=== PATIENT | female | born 1930 | race Caucasian/White ===

== ENCOUNTER 2016-05-07 16:58 | Inpatient (IN) | payer OTHER ==
[~2016-05-07] VITALS: Ht 152.4 cm; Wt 75.5 kg
[~2016-05-07 16:58] MED LIST: ASPIR 8181 MG PO; ATENOLOL50 MG PO; BG MC; DEXILANT60 M1 PO; DICYCLOMINE HCL10 MG PO; GLU500 PO; NORCO1 TA2 PO; ROBDML PO; VALSARTAN160 MG PO; XANAX0.5 MG PO; ZOCOR20 MG PO
[2016-05-07] MEDS ORDERED: NOR10T PO (20:15)
[2016-05-07] MEDS ORDERED: DEXILANT60 M1 PO (20:15)
[2016-05-07] MEDS ORDERED: DIOVAN160 MG PO (20:15)
[2016-05-07] MEDS ORDERED: CETIRIZINE HYDR10 MG PO (20:16)
[2016-05-07 20:26] LABS: BASOPHIL % 0.3 % (0-2); PLATELET COUNT 396 x10^3mcL (130-400)
[2016-05-07 20:37] LABS: CARBON DIOXIDE 27.4 mmol/L (21-32); CHLORIDE SERUM 102 mmol/L (98-107); CREATININE SERUM 1.1 mg/dL (0.6-1.0); GLUCOSE SERUM 104 mg/dL (74-106); POTASSIUM SERUM 3.9 mmol/L (3.5-5.1); SODIUM SERUM 138 mmol/L (136-145)
[2016-05-07 20:43] LABS: ALBUMIN 3.4 g/dL (3.4-5.0); ALKALINE PHOSPHATASE 77 U/L (46-116); ALT/SGPT 19 U/L (14-59); AST/SGOT 16 U/L (15-37); BILIRUBIN TOTAL 0.3 mg/dL (0.20-1.00); CHOLESTEROL 168 mg/dL (<200); HDL CHOLESTEROL 72 mg/dL (40-60); TOTAL PROTEIN, SERUM 7.7 g/dL (6.4-8.2)
[2016-05-07 23:25] VITALS: BP 127/45
[2016-05-07 23:34] LABS: CHOLESTEROL/HDL RATIO 2.4; MAGNESIUM 1.8 mg/dL (1.8-2.4); PHOSPHOROUS 3.6 mg/dL (2.5-4.9)
[2016-05-07 23:37] VITALS: BP 127/45
[2016-05-07 23:57] LABS: FREE THYROXINE INDEX 2.2 ug/dL (1.4-4.5)
[2016-05-08 00:43] LABS: T3 TOTAL 0.93 ng/mL
[2016-05-08 02:28] VITALS: BP 126/46
[2016-05-08 02:40] LABS: microscopic required? YES; urine erythrocyte TRACE (NEGATIVE)
[2016-05-08] MEDS ORDERED: BACLOFEN10 MG PO (04:21)
[2016-05-08] MEDS ORDERED: CLOPIDOGREL75 M1 PO (04:21)
[2016-05-08] MEDS ORDERED: FERROUS SULFAT325 M2 PO (04:22)
[2016-05-08] MEDS ORDERED: DIOVAN160 MG PO (04:22)
[2016-05-08 05:45] VITALS: BP 114/54
[2016-05-08 06:36] LABS: BASOPHIL % 0.2 % (0-2); PLATELET COUNT 384 x10^3mcL (130-400)
[2016-05-08 06:41] LABS: RED CELL DISTRIBUTION WIDTH 15.8 % (11.5-14.5)
[2016-05-08 06:52] LABS: CALCIUM 8.4 mg/dL (8.5-10.1); CARBON DIOXIDE 23.6 mmol/L (21-32); CHLORIDE SERUM 107 mmol/L (98-107); GLUCOSE SERUM 192 mg/dL (74-106); POTASSIUM SERUM 3.7 mmol/L (3.5-5.1); SODIUM SERUM 143 mmol/L (136-145)
[2016-05-08 09:25] VITALS: BP 136/77
[2016-05-08 12:45] VITALS: BP 105/46
[2016-05-08 17:30] VITALS: BP 107/62
[2016-05-08 21:09] VITALS: Ht 152.4 cm; Wt 75.5 kg
[2016-05-08 22:12] VITALS: BP 118/59
[2016-05-09 06:02] LABS: BASOPHIL % 0.3 % (0-2); PLATELET COUNT 355 x10^3mcL (130-400)
[2016-05-09 06:25] LABS: CARBON DIOXIDE 26.2 mmol/L (21-32); CHLORIDE SERUM 110 mmol/L (98-107); GLUCOSE SERUM 108 mg/dL (74-106); MAGNESIUM 1.7 mg/dL (1.8-2.4); PHOSPHOROUS 3.5 mg/dL (2.5-4.9); POTASSIUM SERUM 4.2 mmol/L (3.5-5.1); SODIUM SERUM 145 mmol/L (136-145)
[2016-05-09 06:27] VITALS: BP 121/55
[2016-05-09 06:45] LABS: RED CELL DISTRIBUTION WIDTH 15.5 % (11.5-14.5)
[2016-05-09] MEDS ORDERED: CLEOCIN HCL300 MG PO (09:46)
[2016-05-09] MEDS ORDERED: LEVAQUIN750 MG PO (09:46)
[2016-05-09] MEDS ORDERED: LAC PO (09:46)
[2016-05-09 10:02] VITALS: BP 119/53
[2016-05-09 11:45] VITALS: BP 119/53
[2016-05-09 14:13] VITALS: BP 119/60
== END 2016-05-09 14:50 | disposition home or self-care (01) | DRG 177 ==
LOC: ED 16:58 → DU 22:00
PROVIDERS: Emergency Medicine; Family Medicine; ADMIT Family Medicine
DX: J69.0 Pneumonitis due to inhalation of food and vomit (principal); J96.00 Acute respiratory failure, unspecified whether with hypoxia or hypercapnia; I50.41 Acute combined systolic (congestive) and diastolic (congestive) heart failure; N39.0 Urinary tract infection, site not specified; I11.0 Hypertensive heart disease with heart failure; R73.03 Prediabetes; D64.9 Anemia, unspecified; K76.0 Fatty (change of) liver, not elsewhere classified; M19.90 Unspecified osteoarthritis, unspecified site; I36.1 Nonrheumatic tricuspid (valve) insufficiency; M81.8 Other osteoporosis without current pathological fracture; E66.9 Obesity, unspecified; Z68.32 Body mass index [BMI] 32.0-32.9, adult
CPT/HCPCS: 83880; 84439; J0456; J0696; J1644; J1956; J2930; J3490; J7030; J7050; J7613; J7620; J7626; J7644

== ENCOUNTER 2016-09-26 11:44 | Emergency (ER) | payer OTHER ==
[~2016-09-26 11:44] MED LIST changes: +BACLOFEN10 MG PO; +CETIRIZINE HYDR10 MG PO; +CLEOCIN HCL300 MG PO; +CLOPIDOGREL75 M1 PO; +DIOVAN160 MG PO; +FERROUS SULFAT325 M2 PO; +LAC PO; +LEVAQUIN750 MG PO; +NOR10T PO
[2016-09-26 11:54] VITALS: BP 147/69
== END 2016-09-26 12:42 | disposition home or self-care (01) ==
LOC: ED 11:44
DX: B02.9 Zoster without complications (principal); I10 Essential (primary) hypertension

== ENCOUNTER 2016-11-25 07:26 | Emergency (ER) | payer OTHER ==
[2016-11-25 09:26] VITALS: BP 122/54
== END 2016-11-25 11:20 | disposition home or self-care (01) ==
LOC: ED 07:26
DX: M75.101 Unspecified rotator cuff tear or rupture of right shoulder, not specified as traumatic (principal); M81.0 Age-related osteoporosis without current pathological fracture; M19.90 Unspecified osteoarthritis, unspecified site
CPT/HCPCS: J1885; J2270

== ENCOUNTER 2017-02-27 09:46 | Inpatient (IN) | payer OTHER ==
[~2017-02-27] VITALS: Ht 157.5 cm; Wt 69.0 kg
[2017-02-27 12:19] LABS: BASOPHIL % 0.2 % (0-2); PLATELET COUNT 372 x10^3mcL (130-400); RED CELL DISTRIBUTION WIDTH 14.6 % (11.5-14.5)
[2017-02-27 12:24] LABS: CALCIUM 9.1 mg/dL (8.5-10.1); CARBON DIOXIDE 25.3 mmol/L (21-32); CHLORIDE SERUM 103 mmol/L (98-107); GLUCOSE SERUM 97 mg/dL (74-106); SODIUM SERUM 141 mmol/L (136-145)
[2017-02-27 12:28] LABS: ALBUMIN 3.8 g/dL (3.4-5.0); ALKALINE PHOSPHATASE 65 U/L (46-116); ALT/SGPT 25 U/L (14-59); AST/SGOT 22 U/L (15-37); BILIRUBIN TOTAL 0.4 mg/dL (0.20-1.00); TOTAL PROTEIN, SERUM 7.7 g/dL (6.4-8.2)
[2017-02-27 15:24] VITALS: BP 122/50
[2017-02-27 15:26] VITALS: Ht 157.5 cm; Wt 69.0 kg
[2017-02-27 15:49] VITALS: BP 122/50
[2017-02-27 16:12] LABS: FREE T4 0.91 ng/dL (0.76-1.46); FREE THYROXINE INDEX 2.6 ug/dL (1.4-4.5); T4(THYROXINE) 7.5 ug/dL (4.7-13.3)
[2017-02-27 16:23] LABS: MAGNESIUM 1.6 mg/dL (1.8-2.4); PHOSPHOROUS 3.6 mg/dL (2.5-4.9)
[2017-02-27 17:19] VITALS: BP 119/50
[2017-02-28 06:22] VITALS: BP 117/53
[2017-02-28 07:34] LABS: CALCIUM 8.2 mg/dL (8.5-10.1); CARBON DIOXIDE 26.6 mmol/L (21-32); CHLORIDE SERUM 105 mmol/L (98-107); CREATININE SERUM 1.1 mg/dL (0.6-1.0); GLUCOSE SERUM 97 mg/dL (74-106); POTASSIUM SERUM 4.2 mmol/L (3.5-5.1); SODIUM SERUM 139 mmol/L (136-145); TRIGLYCERIDES 40 mg/dL (<150)
[2017-02-28 07:39] LABS: CHOLESTEROL 130 mg/dL (<200); CHOLESTEROL/HDL RATIO 2.1; HDL CHOLESTEROL 62 mg/dL (40-60)
[2017-02-28 07:40] LABS: PLATELET COUNT 320 x10^3mcL (130-400); RED CELL DISTRIBUTION WIDTH 14.1 % (11.5-14.5)
[2017-02-28 10:14] VITALS: BP 100/38
[2017-02-28 13:33] LABS: T3 TOTAL 1.1 ng/mL
[2017-02-28 14:40] VITALS: BP 118/45
[2017-02-28 17:37] VITALS: BP 110/62
[2017-02-28 20:40] VITALS: BP 129/48
[2017-03-01 05:00] VITALS: BP 146/64
[2017-03-01 07:45] LABS: BASOPHIL % 0.6 % (0-2); PLATELET COUNT 280 x10^3mcL (130-400)
[2017-03-01 07:52] LABS: RED CELL DISTRIBUTION WIDTH 15.1 % (11.5-14.5)
[2017-03-01 07:57] LABS: CALCIUM 7.8 mg/dL (8.5-10.1); CARBON DIOXIDE 24.9 mmol/L (21-32); CHLORIDE SERUM 104 mmol/L (98-107); CREATININE SERUM 0.9 mg/dL (0.6-1.0); GLUCOSE SERUM 96 mg/dL (74-106); POTASSIUM SERUM 3.8 mmol/L (3.5-5.1); SODIUM SERUM 139 mmol/L (136-145)
[2017-03-01 08:26] LABS: UA SPECIFIC GRAVITY >=1.030 (1.005-1.035); microscopic required? YES; urine erythrocyte NEGATIVE (NEGATIVE)
[2017-03-01 08:39] LABS: AMPHETAMINE QUAL UR NONE DETECTED (NEG <=1000)
[2017-03-01 10:03] VITALS: BP 125/47
[2017-03-01 17:47] VITALS: BP 106/46
[2017-03-01 20:55] VITALS: BP 122/57
[2017-03-02 05:41] VITALS: BP 145/64
[2017-03-02 06:56] LABS: BASOPHIL % 0.4 % (0-2); PLATELET COUNT 313 x10^3mcL (130-400); RED CELL DISTRIBUTION WIDTH 15.1 % (11.5-14.5)
[2017-03-02 09:34] VITALS: BP 112/59
[2017-03-02 09:57] LABS: ALBUMIN 3.4 g/dL (3.4-5.0); CALCIUM 8.2 mg/dL (8.5-10.1); CARBON DIOXIDE 26.6 mmol/L (21-32); CHLORIDE SERUM 104 mmol/L (98-107); GLUCOSE SERUM 99 mg/dL (74-106); POTASSIUM SERUM 4.2 mmol/L (3.5-5.1); SODIUM SERUM 140 mmol/L (136-145)
[2017-03-02] MEDS ORDERED: LEVOFLOXACIN500 M1 PO (10:15)
[2017-03-02] MEDS ORDERED: CLINDAMYCIN HC300 MG PO (10:16)
[2017-03-02] MEDS ORDERED: COUGH100 MG/5 M PO (10:17)
[2017-03-02 10:34] VITALS: BP 112/59
[2017-03-02] MEDS ORDERED: LAC PO (10:37)
== END 2017-03-02 16:40 | disposition home or self-care (01) | DRG 177 ==
LOC: ED 09:46 → MU 12:25 → DU 12:25 → ED 12:25 → DU 14:01 → MU 03-01 08:08
PROVIDERS: Emergency Medicine; Family Medicine
DX: J69.0 Pneumonitis due to inhalation of food and vomit (principal); N17.0 Acute kidney failure with tubular necrosis; G93.41 Metabolic encephalopathy; E44.0 Moderate protein-calorie malnutrition; K21.9 Gastro-esophageal reflux disease without esophagitis; E83.42 Hypomagnesemia; E83.51 Hypocalcemia; R73.03 Prediabetes; R91.1 Solitary pulmonary nodule; M19.90 Unspecified osteoarthritis, unspecified site; F90.9 Attention-deficit hyperactivity disorder, unspecified type; M81.0 Age-related osteoporosis without current pathological fracture; Z68.27 Body mass index [BMI] 27.0-27.9, adult
CPT/HCPCS: 36600; 83880; 84439; 87804; 90658; 94150; J0696; J1885; J1956; J2405; J3475; J3490; J7030; J7613; J7620; J7644; Q0092

== ENCOUNTER 2018-04-22 15:33 | Inpatient (IN) | payer OTHER ==
[~2018-04-22] VITALS: Ht 157.5 cm; Wt 61.8 kg
[~2018-04-22 15:33] MED LIST changes: +CLINDAMYCIN HC300 MG PO; +COUGH100 MG/5 M PO; +LEVOFLOXACIN500 M1 PO
[2018-04-22 19:23] LABS: PLATELET COUNT 311 x10^3mcL (130-400)
[2018-04-22 19:26] LABS: CALCIUM 9.2 mg/dL (8.5-10.1); CHLORIDE SERUM 104 mmol/L (98-107); CREATININE SERUM 1.2 mg/dL (0.6-1.0); GLUCOSE SERUM 100 mg/dL (74-106); POTASSIUM SERUM 4.6 mmol/L (3.5-5.1); SODIUM SERUM 140 mmol/L (136-145)
[2018-04-22 19:31] LABS: RED CELL DISTRIBUTION WIDTH 14.7 % (11.5-14.5)
[2018-04-22 19:33] LABS: microscopic required? NO
[2018-04-22 19:39] LABS: ALBUMIN 3.8 g/dL (3.4-5.0); ALKALINE PHOSPHATASE 97 U/L (46-116); ALT/SGPT 22 U/L (14-59); AST/SGOT 24 U/L (15-37); BILIRUBIN TOTAL 0.36 mg/dL (0.20-1.00); FREE T4 0.89 ng/dL (0.76-1.46); TOTAL PROTEIN, SERUM 7.6 g/dL (6.4-8.2)
[2018-04-22 19:44] LABS: UA SPECIFIC GRAVITY <=1.005 (1.005-1.035); urine erythrocyte NEGATIVE (NEGATIVE)
[2018-04-22 19:44] LABS: BAND NEUTROPHIL 4 % (0-10); BASOPHIL 0 % (0-2); MONOCYTE 8 % (0-7); SEGMENTED NEUTROPHILS 73 % (37-75)
[2018-04-22 19:45] LABS: rbc morphology (normal/abnorm) NORMAL (NORMAL)
[2018-04-22 19:54] LABS: AMPHETAMINE QUAL UR NONE DETECTED (See below)
[2018-04-22] MEDS ORDERED: NATURAL IRON65 MG (20:32)
[2018-04-22] MEDS ORDERED: DIOVAN40 MG (21:03)
[2018-04-22 23:03] VITALS: BP 143/43
[2018-04-22 23:09] VITALS: Ht 157.5 cm; Wt 61.8 kg
[2018-04-23 04:27] LABS: BASOPHIL % 0.3 % (0-2); PLATELET COUNT 266 x10^3mcL (130-400); RED CELL DISTRIBUTION WIDTH 14.8 % (11.5-14.5)
[2018-04-23 04:54] LABS: CALCIUM 8.4 mg/dL (8.5-10.1); CARBON DIOXIDE 25.2 mmol/L (21-32); CHLORIDE SERUM 108 mmol/L (98-107); CREATININE SERUM 1.1 mg/dL (0.6-1.0); GLUCOSE SERUM 89 mg/dL (74-106); MAGNESIUM 1.7 mg/dL (1.8-2.4); POTASSIUM SERUM 4.2 mmol/L (3.5-5.1); SODIUM SERUM 141 mmol/L (136-145)
[2018-04-23 05:53] VITALS: BP 121/55
[2018-04-23 06:10] VITALS: BP 97/29
[2018-04-23 07:43] LABS: CHOLESTEROL/HDL RATIO 2.8
[2018-04-23 09:43] VITALS: BP 102/46
[2018-04-23 17:01] VITALS: BP 115/59
[2018-04-23 20:56] VITALS: BP 114/41
[2018-04-24 05:41] VITALS: BP 130/48
[2018-04-24 06:56] LABS: CALCIUM 8.5 mg/dL (8.5-10.1); CARBON DIOXIDE 25.7 mmol/L (21-32); CHLORIDE SERUM 111 mmol/L (98-107); CREATININE SERUM 1.1 mg/dL (0.6-1.0); GLUCOSE SERUM 96 mg/dL (74-106); MAGNESIUM 1.7 mg/dL (1.8-2.4); SODIUM SERUM 143 mmol/L (136-145)
[2018-04-24 07:15] LABS: PLATELET COUNT 255 x10^3mcL (130-400); RED CELL DISTRIBUTION WIDTH 14.8 % (11.5-14.5)
[2018-04-24 09:34] VITALS: BP 118/46
[2018-04-24] MEDS ORDERED: GOOD NEIGHBOR P20 M2 PO (09:50)
[2018-04-24 11:13] VITALS: BP 118/46; BP 125/39
[2018-04-24 11:49] LABS: ATYPICAL LYMPH 4 %; BAND NEUTROPHIL 20 % (0-10); BASOPHIL 0 % (0-2); MONOCYTE 4 % (0-7); SEGMENTED NEUTROPHILS 56 % (37-75); rbc morphology (normal/abnorm) ABNORMAL (NORMAL)
[2018-04-24 11:50] LABS: PLATELET MORPHOLOGY PLATELETS DECREASED
[2018-04-24 12:05] VITALS: BP 125/39
== END 2018-04-24 15:15 | disposition home health service (06) | DRG 205 ==
LOC: ED 15:33 → DU 21:55
PROVIDERS: Emergency Medicine; Internal Medicine; ADMIT General Practice
DX: M94.0 Chondrocostal junction syndrome [Tietze] (principal); N17.0 Acute kidney failure with tubular necrosis; K21.9 Gastro-esophageal reflux disease without esophagitis; G90.9 Disorder of the autonomic nervous system, unspecified; E83.42 Hypomagnesemia; I10 Essential (primary) hypertension; D50.9 Iron deficiency anemia, unspecified; M19.90 Unspecified osteoarthritis, unspecified site; Z85.72 Personal history of non-Hodgkin lymphomas; Z86.718 Personal history of other venous thrombosis and embolism; Z86.73 Personal history of transient ischemic attack (TIA), and cerebral infarction without residual deficits
CPT/HCPCS: 82962; 84439; 85378; 97116-GP; J3475; J7030; J8597; Q0092

== ENCOUNTER 2019-02-03 08:56 | Emergency (ER) | payer OTHER ==
[~2019-02-03] VITALS: Ht 152.4 cm; Wt 60.3 kg
[~2019-02-03 08:56] MED LIST changes: +DIOVAN40 MG; +GOOD NEIGHBOR P20 M2 PO; +NATURAL IRON65 MG
[2019-02-03 09:06] VITALS: Ht 152.4 cm; Wt 60.3 kg
[2019-02-03 10:05] LABS: CALCIUM 8.5 mg/dL (8.5-10.1); CARBON DIOXIDE 22.4 mmol/L (21-32); CHLORIDE SERUM 105 mmol/L (98-107); CREATININE SERUM 1.3 mg/dL (0.6-1.0); GLUCOSE SERUM 107 mg/dL (74-106); POTASSIUM SERUM 4.3 mmol/L (3.5-5.1); SODIUM SERUM 139 mmol/L (136-145)
[2019-02-03 10:10] LABS: ALKALINE PHOSPHATASE 193 U/L (46-116); ALT/SGPT 237 U/L (14-59); AST/SGOT 132 U/L (15-37); BILIRUBIN TOTAL 0.67 mg/dL (0.20-1.00); TOTAL PROTEIN, SERUM 7.4 g/dL (6.4-8.2)
[2019-02-03 10:11] LABS: ALBUMIN 3.2 g/dL (3.4-5.0)
[2019-02-03 10:12] LABS: BASOPHIL % 0.1 % (0-2); PLATELET COUNT 291 x10^3mcL (130-400); RED CELL DISTRIBUTION WIDTH 16.5 % (11.5-14.5)
[2019-02-03 11:56] VITALS: BP 118/48
[2019-02-03 11:58] LABS: UA SPECIFIC GRAVITY 1.015 (1.005-1.035); microscopic required? YES; urine erythrocyte NEGATIVE (NEGATIVE)
== END 2019-02-03 11:56 | disposition home or self-care (01) ==
LOC: ED 08:56
PROVIDERS: Emergency Medicine
DX: J40 Bronchitis, not specified as acute or chronic (principal); M19.90 Unspecified osteoarthritis, unspecified site
CPT/HCPCS: 36415; 87804; J7030; Q0092